=== PATIENT | male | born 1965 | race Caucasian/White ===

== ENCOUNTER 2023-01-22 09:22 | Outpatient (CLI) | payer OTHER | END 2023-01-22 23:59 | disposition home or self-care (01) | LOC: LAB 09:22 | PROVIDERS: ATTEND Student in an Organized Health Care Education/Training Program | DX: I27.20 Pulmonary hypertension, unspecified (principal) ==

== ENCOUNTER 2023-03-20 10:58 | Day surgery (SDC) | payer OTHER ==
[2023-03-16 09:33] LABS: BASOPHILS # (AUTO) 0.1 X10'3 (0-0.2); BASOPHILS % (AUTO) 1.1 % (0-1); EOSINOPHILS # (AUTO) 0.4 X10'3 (0-0.9); EOSINOPHILS % (AUTO) 5.1 % (0-6); HEMATOCRIT 40.7 % (42.0-52.0); HEMOGLOBIN 13.4 g/dl (14.0-17.9); LYMPHOCYTES # (AUTO) 1.4 X10'3 (1.1-4.8); LYMPHOCYTES % (AUTO) 18.7 % (21-51); MEAN CORPUSCULAR HEMOGLOBIN 27.3 PG (27.0-31.0); MEAN CORPUSCULAR HGB CONC 32.9 g/dL (33.0-36.5); MEAN CORPUSCULAR VOLUME 82.9 FL (78-98); MEAN PLATELET VOLUME 8.3 FL (7.4-10.4); MONOCYTES # (AUTO) 0.6 X10'3 (0-0.9); MONOCYTES % (AUTO) 8.3 % (2-12); NEUTROPHILS # (AUTO) 5.1 X10'3 (1.8-7.7); NEUTROPHILS % (AUTO) 66.8 % (42-75); PLATELET COUNT 198 X10'3 (140-440); RED BLOOD COUNT 4.92 X10'6 (4.70-6.10); RED CELL DISTRIBUTION WIDTH 14.9 % (11.5-14.5); WHITE BLOOD COUNT 7.6 X10'3 (4.5-11.0)
[2023-03-16 09:43] LABS: APTT 29 SECONDS (22-32); INR 0.9 INR; PROTHROMBIN TIME 10.2 SECONDS (9.0-12.0)
[2023-03-16 09:44] LABS: ALBUMIN 3.3 G/DL (3.4-5.0); ANION GAP 8 (8-16); BLOOD UREA NITROGEN 13 MG/DL (7-18); CALCIUM 9.1 MG/DL (8.5-10.1); CHLORIDE 105 MMOL/L (99-107); CHOL/HDL RATIO 5.6 (0.00-4.99); CHOLESTEROL 235 MG/DL (0-200); GLUCOSE 109 MG/DL (70-104); HDL CHOLESTEROL 42 MG/DL (35-60); LDL CHOLESTEROL 147 MG/DL (50-100); POTASSIUM 4.1 MMOL/L (3.5-5.1); SODIUM 138 MMOL/L (135-145); TRIGLYCERIDES 173 MG/DL (20-135); eGFR 76 ML/MIN
[~2023-03-20] VITALS: Ht 182.9 cm; Wt 119.1 kg
[2023-03-20] VITALS (8 sets, daily range): BP systolic 118–143; BP diastolic 53–111; PULSE 65–90; RESP 16–65; TEMP 98.2; O2SAT 93–95
[~2023-03-20 10:58] MED LIST: LIDOcaine 1% (10mg/ml) 2ml vial ONE; LIDOcaine 1% (10mg/ml)w/preservative inj. 20ml MDV ONE; fentaNYL/PF 50MCG/1 ML 2ML syringe ONE; iohexol 350 MG/ML 50ML vial IV ONE; midazolam 1 mg/ML 2ml injection ONE
[2023-03-20] MEDS ORDERED: LORazepam 0.5 MG tablet PO PRN ×2 (11:15→11:35)
[2023-03-20] MEDS ORDERED: normal saline 1,000 ML IV SCH ×2 (11:15→11:35)
[2023-03-20] MEDS ORDERED: diphenhydrAMINE 25mg capsule PO PRN ×2 (11:15→11:35)
[2023-03-20] MEDS ORDERED: HYDR-3972 PO (11:47)
[2023-03-20] MEDS ORDERED: LOPE2CAP PO (11:47)
[2023-03-20] MEDS ORDERED: HYDR50TA65 PO (11:47)
[2023-03-20] MEDS ORDERED: MULT-1085 PO (11:47)
[2023-03-20] MEDS ORDERED: PANT40TA54 PO (11:47)
[2023-03-20] MEDS ORDERED: BUPR-72 PO (11:47)
[2023-03-20] MEDS ORDERED: ASPI-955 PO (11:49)
[2023-03-20] MEDS ORDERED: ALB0.5UD IH (11:49)
[2023-03-20] MEDS ORDERED: TIOT18CA8 INH (11:50)
[2023-03-20] MEDS ORDERED: SERT-434 PO (11:51)
[2023-03-20] MEDS ORDERED: MYCO250C46 PO (11:52)
[2023-03-20] MEDS ORDERED: FLUT16SP BOTHNARES (11:53)
--- NOTE | 2023-03-20 13:55 | NUR ---
Patient returned to unit via gurney from procedure. Received report from IZABELLA Mathias at bedside. Dressing to right AC CDI. Patient placed on monitor, first set of VS at time of report were stable.
[2023-03-20] MEDS ORDERED: HYDROcodone/acetaminophen 10/325mg tab PO PRN (14:15)
[2023-03-20] MEDS ORDERED: HYDROcodone/acetaminophen 5mg/325mg tablet PO PRN (14:15)
[2023-03-20 15:21] LABS: ISTAT HGB MIX 12.6 g/dl (14.0-17.9); ISTAT Hct MIX 37 %PCV (42-52); ISTAT O2 SATURATION MIX VENOUS 57 % (60-80); ISTAT SOURCE VEN
== END 2023-03-20 15:31 | disposition home or self-care (01) ==
LOC: SSTAY O 10:58
PROVIDERS: ATTEND Student in an Organized Health Care Education/Training Program
DX: I27.20 Pulmonary hypertension, unspecified (principal); J44.9 Chronic obstructive pulmonary disease, unspecified; J84.10 Pulmonary fibrosis, unspecified; I10 Essential (primary) hypertension; G47.33 Obstructive sleep apnea (adult) (pediatric); Z79.01 Long term (current) use of anticoagulants; Z79.899 Other long term (current) drug therapy; Z79.82 Long term (current) use of aspirin
CPT/HCPCS: 36415; 80048; 80061; 82803; 85014; 85025; 85610; 85730; 93005; 93451; 99152; J1644; J2250; J3010; J3490; J7030; Q0163; 99153; A6258; C1751; C1769; Q9967